=== PATIENT | male | born 1995 | race Caucasian/White ===

== ENCOUNTER 2019-02-28 12:57 | Emergency (ER) | payer MEDICAID ==
[~2019-02-28] VITALS: Ht 180.3 cm; Wt 145.4 kg
[2019-02-28 12:59] VITALS: BP 133/79
[2019-02-28] MEDS ORDERED: acetaminophen w/codeine (30MG) #3 tablet PO ONE (13:25)
[2019-02-28] MEDS ORDERED: PENI500T2 PO (13:26)
[2019-02-28] MEDS ORDERED: ACET-3067 PO (13:26)
== END 2019-02-28 14:16 | disposition home or self-care (01) ==
LOC: ER 12:59
DX: K02.9 Dental caries, unspecified (principal); F17.200 Nicotine dependence, unspecified, uncomplicated; Z88.0 Allergy status to penicillin; Z79.899 Other long term (current) drug therapy; Z59.0 Homelessness
CPT/HCPCS: 99283